=== PATIENT | male | born 1980 | race Caucasian/White ===

== ENCOUNTER 2020-07-05 10:40 | Emergency (ER) | payer OTHER, SELFPAY ==
[2020-07-05 10:47] VITALS: BP 144/107; PULSE 85; RESP 18; TEMP 36.7; O2SAT 100
[2020-07-05] MEDS: AMOXICILLIN/CLAVULANATE K 875-125 MG TAB 1 TABLET PO (11:41)
[2020-07-05] MEDS: TETANUS,DIPHTHERIA,AC PERTUSSIS ADULT (0.5 ML) BOOSTRIX IM (11:41)
--- NOTE | 2020-07-05 11:58 | ED.ANIMALBIT ---
HPI - Animal Bite General Chief Complaint: Animal Bite Stated Complaint: dog bite to face Time Seen by Provider: 07/05/20 11:14 Source: patient Mode of arrival: ambulatory Limitations: no limitations History of Present Illness HPI narrative: This is a 40 year old male that presents to the ER for dog bite sustained today. Reports he got a new puppy a couple of months ago. Reports the dog is up-to-date on vaccinations. He, himself is unsure of his last tetanus vaccination. Reports he was petting the puppy today and he bit him on the face. Reports lacerations to his lip. Denies any other injuries. Related Data Home Medications Medication Instructions Recorded Confirmed carboxymethylcellulose 0.5 1 drop EACH EYE QID 07/26/19 %-glycerin 0.9 % eye drops fluticasone propionate 50 2 spray NASAL DAILY 07/26/19 mcg/actuation nasal spray,suspension ibuprofen 200 mg tablet 600 mg PO Q6H PRN tablet 07/26/19 multivitamin 1 tablet PO DAILY 07/26/19 Allergies Allergy/AdvReac Type Severity Reaction Status Date / Time No Known Allergies Allergy Verified 07/05/20 10:50 Review of Systems Review of Systems: Narrative: CONSTITUTIONAL: Denies fever SKIN: Reports laceration All systems reviewed & are unremarkable except as noted in HPI and below PMFSH Past Medical History Medical History (Updated 07/05/20 @ 14:12 by Emma Mckeon PA-C) Allergies Bone spur Removed 1991 Depression Migraine headache Surgical History Surgical History (Updated 07/26/19 @ 13:07 by Charito Albarran CMA) S/P ACL reconstruction 2001 [place] teeth removed 2003 Family History Family History (Updated 07/26/19 @ 13:08 by Charito Albarran CMA) Mother Obesity Father Obesity Hypertension Hyperglycemia Alcoholism Grandparent Alcoholism Cerebrovascular accident Bipolar disorder Social History Social History (Updated 07/26/19 @ 13:08 by Charito Albarran CMA) Smoking status: Never smoker Alcohol intake: current Exam Narrative: Exam Narrative: GENERAL: Well-appearing, well-nourished, and in no acute distress. HEAD: Normocephalic, atraumatic. EYES: EOMI. ENT: Mucous membranes moist. Oropharynx without tonsillar hypertrophy exudate or other lesions. 1.5cm linear laceration crossing the vermilion border, through the lip. Additional 1cm linear laceration crossing vermilion border, through the lip EXTREMITIES: Normal range of motion. No edema. SKIN: Warm, dry, no rash. NEURO: No focal deficits. Alert and oriented x3. PSYCH: Normal mood and affect Course Vital Signs Vital signs: Vital Signs Temperature 98.0 F 07/05/20 10:47 Pulse Rate 85 07/05/20 10:47 Respiratory Rate 18 07/05/20 10:47 Blood Pressure 144/107 H 07/05/20 10:47 Pulse Oximetry 100 07/05/20 10:47 Temperature 98.0 F 07/05/20 10:47 Pulse Rate 85 07/05/20 10:47 Respiratory Rate 18 07/05/20 10:47 Blood Pressure 144/107 H 07/05/20 10:47 Pulse Oximetry 100 07/05/20 10:47 Procedures Laceration Laceration 1: Date: 07/05/20 Time: 14:07 Site: lip Size (cm): 1.5 Description: linear and involves ana border Depth: simple, single layer Local Anesthetic: lidocaine 1% Amount of anesthesia used (mL): 3 Pre-repair: irrigated ====== Skin Level ====== Skin layer closed with: nylon and other (Fast-absorbing) Size (cm): 5-0 and 6-0 Number of sutures: 2 Technique: simple, interrupted ====== Subcutaneous Layer ====== ====== Muscle Layer ====== ====== Tendon Layer ====== Laceration 2: Date: 07/05/20 Time: 14:08 Site: lip Size (cm): 1 Description: linear and involves ana border Depth: simple, single layer Local Anesthetic: lidocaine 1% Amount of anesthesia used (mL): 3 Pre-repair: irrigated ====== Skin Level ====== Skin la
[2020-07-05 14:17] VITALS: BP 140/96; PULSE 80; RESP 17; O2SAT 100
== END 2020-07-05 14:20 | disposition home or self-care (01) ==
PROVIDERS: Emergency Provider Emergency Medicine; PCP Internal Medicine
DX: S01.551A Open bite of lip, initial encounter (principal); W54.0XXA Bitten by dog, initial encounter; Z23 Encounter for immunization
CPT/HCPCS: 12011; 90471; 90715; 99283; A9270

== ENCOUNTER 2021-11-17 07:55 | Outpatient (CLI) | payer OTHER, SELFPAY ==
--- NOTE | ~2021-11-17 | US_ITS ---
US abdomen limited INDICATION: Elevated liver function tests. PROCEDURE: Realtime right upper abdominal ultrasound. COMPARISON: No prior studies for comparison. FINDINGS: The pancreas is normal without focal mass or pancreatic ductal dilation. Liver echotexture is increased, consistent with fatty infiltration. There is a small hypoechoic mass adjacent to the g allbladder measuring 1.6 x 1.1 x 0.8 cm, possibly focal fatty sparing although further evaluation is recommended. There is normal directional flow in the portal vein. The gallbladder is normal without stones, gallbladder wall thickening or pericholecystic fluid. Comm on bile duct measures 4 mm. No sonographic Beaver's sign. IMPRESSION: 1: Fatty infiltration of the liver with focal hypoechoic mass measuring 1.6 cm adjacent to the gallbl adder. This may represent focal fatty sparing, although further evaluation with contrast-enhanced CT or MRI recommended. Reviewed, dictated and finalized at location B. IMPRESSION: 1: Fatty infiltration of the liver with focal hypoechoic mass measuring 1.6 cm adjacent to the gallbladder. This may represent focal fatty sparing, although f urther evaluation with contrast-enhanced CT or MRI recommended.
== END 2021-11-17 07:56 | disposition home or self-care (01) ==
PROVIDERS: PCP Internal Medicine; Visit Provider Nurse Practitioner
DX: R74.01 Elevation of levels of liver transaminase levels (principal); K76.0 Fatty (change of) liver, not elsewhere classified
CPT/HCPCS: 76705

== ENCOUNTER 2021-11-26 08:42 | Outpatient (CLI) | payer OTHER, SELFPAY ==
--- NOTE | ~2021-11-26 | MR_ITS ---
EXAMINATION: MR abdomen wo/w con DATE: 11/26/2021 10:04 INDICATION: Hepatomegaly, not elsewhere classified. Liver mass. TECHNIQUE: Magnetic resonance imaging (MRI) of the abdomen was performed without and with 20 mL Multi Peyman intravenous contrast. COMPARISON: Abdomen ultrasound 11/17/21 FINDINGS: There is diffuse hepatic steatosis with focal sparing at the gallbladder fossa correlating with the u ltrasound finding. The gallbladder, spleen, pancreas, adrenal glands, and kidneys are normal. There a re no dilated loops of bowel. There are no pathologically enlarged lymph nodes. There is no free intr aperitoneal fluid. IMPRESSION: 1. Diffuse hepatic steatosis with focal sparing in the gallbladder fossa correlating with the ultraso und finding. Reviewed, dictated and finalized at location B. IMPRESSION: 1. Diffuse hepatic steatosis with focal sparing in the gallbladder fossa correl ating with the ultrasound finding.
[2021-11-26 09:28] LABS: Estimated Glomerular Filt Rate > 60
== END 2021-11-26 08:43 | disposition home or self-care (01) ==
PROVIDERS: PCP Internal Medicine; Visit Provider Nurse Practitioner
DX: R16.0 Hepatomegaly, not elsewhere classified (principal); K76.0 Fatty (change of) liver, not elsewhere classified
CPT/HCPCS: 74183; A9577